=== PATIENT | male | born 1965 | race Caucasian/White ===

== ENCOUNTER 2024-10-15 11:14 | Emergency (ER) | payer SELFPAY ==
[2024-10-15 12:03] VITALS: BP 117/78; PULSE 95; RESP 16; TEMP 36.6; O2SAT 97; BMI 28.1
--- NOTE | 2024-10-15 12:52 | PD.EDANIML ---
ED Animal Bite RME/HPI General Chief Complaint: Animal Bite Stated Complaint: DOG BITE Time Seen by Provider: 10/15/24 12:03 Arrival date/time: 10/15/24 11:14 58-year-old male presents the emergency room today stating he was his 2 dogs and his dog accidentally bit him. Patient reports vaccines are up-to-date. Patient obtained 2 different lacerations on the right hand Limitations: no limitations Related Data Home Medications ?Medication ?Instructions ?Recorded ?Confirmed atenolol 25 mg tablet 25 mg PO QDAY 09/22/17 10/26/19 gabapentin 300 mg capsule 300 mg PO TID 09/22/17 10/26/19 lithium carbonate 300 mg tablet 300 mg PO DAILY PRN Sleep 09/22/17 10/26/19 quetiapine 400 mg tablet (Seroquel) 400 mg PO HS Anxiety 09/22/17 10/26/19 vortioxetine 5 mg tablet 5 mg PO QDAY 09/22/17 10/26/19 (Trintellix) Previous Rx's ?Medication ?Instructions ?Recorded amoxicillin 875 mg-potassium 1 tab PO BID 7 days #14 tabs 10/15/24 clavulanate 125 mg tablet ibuprofen 800 mg tablet 800 mg PO TID PRN pain #30 tabs 10/15/24 Allergies Allergy/AdvReac Type Severity Reaction Status Date / Time NKA* Allergy Uncoded 10/15/24 11:16 Review of Systems Review of Systems Systems Reviewed: All systems reviewed, normal except as documented Constitutional Constitutional: Reports system reviewed and no additional complaints, except as documented, Denies fever(s) and Denies headache(s) Eyes Eyes: Reports system reviewed and no additional complaints, except as documented and Denies blurry vision ENT Ears, Nose, Mouth, and Throat: Reports system reviewed and no additional complaints, except as documented, Denies headache(s), Denies nasal congestion and Denies nasal discharge Cardiovascular Cardiovascular: Reports system reviewed and no additional complaints, except as documented, Denies chest pain and Denies dyspnea Respiratory Respiratory: Reports system reviewed and no additional complaints, except as documented, Denies chest congestion, Denies cough and Denies dyspnea Gastrointestinal Gastrointestinal: Reports system reviewed and no additional complaints, except as documented and Denies abdominal pain Musculoskeletal Musculoskeletal: Reports system reviewed and no additional complaints, except as documented and Reports other (Laceration right hand 2nd and 3rd digit) Integumentary/Breasts Skin/Breast: Reports system reviewed and no additional complaints, except as documented, Denies rash and Reports wounds (Laceration right hand 2nd and 3rd digits) Neurologic Neurologic: Reports system reviewed and no additional complaints, except as documented, Reports as per HPI and Denies headache(s) Past Medical History Past Medical History NEUROLOGIC: Negative Neurological Disorders CARDIAC: Positive Hypertension; Negative Cardiac Disorders or Congestive Heart Failure RESPIRATORY: Negative Chronic Obstructive Pulmonary Disease (COPD) GENITOURINARY: Negative Renal Disease ENDOCRINE: Positive Diabetes Mellitus Type 2; Negative Diabetes Mellitus Type 1 PSYCHO/SOCIAL: Positive Depression Social History SMOKING STATUS: Never smoker ED Exam General Limitations: Present no limitations General appearance: Present alert and in no apparent distress Head Head exam: Present atraumatic Eye Eye exam: Present normal appearance, PERRL and EOMI ENT ENT exam: Present normal exam, normal oropharynx and mucous membranes moist Neck Neck exam: Present normal inspection, full ROM and trachea midline Chest Chest inspection: Present normal inspection and symmetric chest wall rise Respiratory Respiratory exam: Present normal lung sounds bilaterally Cardiovascular Cardiovascular exam: Present regular rate, normal rhythm and normal heart sounds Abdominal Exam Abdominal exam: Present soft and normal bowel sounds Extremities Exam Extremities exam: Present full ROM, tenderness, normal capillary refill and other (Laceration right hand 2nd and 3rd digits); Absent joint swelling Back Exam Back exam: Present normal inspection and full ROM Neurological Exam Neurological exam: Present alert, oriented X3 and CN II-XII intact Psychiatric Psychiatric exam: Present normal affect and normal mood Skin Skin exam: Present warm, dry and other (Laceration right hand 2nd and 3rd digits) Course Quality Measures none Orders Category Date Time Status Set Up Suture Tray STAT Care 10/15/24 12:09 Active Wound Care NOW Care 10/15/24 12:09 Active Amoxicillin/Pot Clav 875 [Augmentin 875] Med 10/15/24 12:09 Discontinued 1 tab PO X1 ONE Lidocaine 1% 20 ml [Xylocaine 1% 20 ML] Med 10/15/24 12:09 Discontinued 20 ml INFL X1 ONE Vital Signs Vital signs: Vital Signs Temperature 97.9 F 10/15/24 12:03 Pulse Rate 95 10/15/24 12:03 Respiratory Rate 16 10/15/24 12:03 Blood Pressure 117/78 10/15/24 12:03 Pulse Oximetry (%) 97 10/15/24 12:03 Oxygen Delivery Method Room Air 10/15/24 12:03 O2 saturation 97% on room air within normal limits Procedures -ED Laceration Laceration 1: Site: hand Side (If applicable): right Size (cm): 4 Description: irregular Depth: simple, single layer Local Anesthetic: lidocaine 1% Amount of anesthesia used (mL): 8 Pre-repair: wound explored Skin layer closed with: nylon Size (cm): 4-0 Number of sutures: 8 Technique: simple, interrupted Laceration 2: Site: hand Side (If applicable): right Size (cm): 3 Description: linear and irregular Depth: simple, single layer Local Anesthetic: lidocaine 1% Amount of anesthesia used (mL): 10 Pre-repair: wound explored Size (cm): 4-0 and 5-0 Number of sutures: 9 Animal Bite MDM Narrative MDM Narrative:: 58-year-old male presents the emergency room today stating he was his 2 dogs and his dog accidentally bit him. Patient reports vaccines are up-to-date. Patient obtained 2 different lacerations on the right hand On exam patient making a fist move all fingers without difficulty no evidence of tendon or ligamentous injury Multiple sutures applied which are well-approximated with no active bleeding, discharge Patient reports tetanus up-to-date patient given first dose of antibiotics here Patient discharged home in no distress to follow-up with primary care doctor in the next 24 to 48 hours and for any worsening symptoms to return to the ER immediately Patient data External records reviewed:: [facility] previous records Clinical information provided by:: patient Social determinants that could affect healthcare access:: none Patient has the following chronic illnesses:: None How is presenting disease/condition affected by chronic disease/condition?: no chronic disease Evaluation data The following diagnostics were reviewed and interpreted by me:: other (specify) Lab and/or radiology exams considered but not ordered:: Considered not ordered Interpretation Summary: N/A Medications / Prescriptions Medications or Prescriptions considered but not ordered:: Given Medication administrations:: Medication Administration History Discontinued Medications Amoxicillin/Clavulanate Potassium (Amoxicillin/Pot Clav 875 Tablet) 1 tab PO X1 ONE Stop: 10/15/24 12:10 Last Admin: 10/15/24 13:04 Dose: 1 tab Documented By: BASHIR Lidocaine HCl (Lidocaine Hcl 1% 20 Ml Vial) 20 ml INFL X1 ONE Stop: 10/15/24 12:10 Last Admin: 10/15/24 13:04 Dose: 20 ml Documented By: BASHIR Comments: given to lieutenant shift supervisor deppen for administration Given Consultations Consultation(s) initiated? (list below): No Diagnosis Differential diagnosis animal bite: bite by animal and dog bite Most likely diagnosis given after review of the tests above:: Dog bite Admission Indicated Admission indicated?: not indicated Admission Request Was there a request for admission?: No Disposition Plan Disposition Plan: Discharge Discharge Attestation Discharge Attestation: The patient and all family members were given an opportunity to ask questions and understood the discharge instructions. Discharge instructions specifically effects, indications for sooner follow up or return to the emergency department, and the expected course of current diagnosis. Patient condition: Stable Discharge Plan Plan Patient Disposition: HOME (Self Care) Discharge Disposition comment: Stable Prescriptions/Referrals Prescriptions/Med Rec: New ibuprofen 800 mg tablet 800 mg PO TID PRN (Reason: pain) Qty: 30 0RF amoxicillin-pot clavulanate 875-125 mg tablet 1 tab PO BID 7 Days Qty: 14 0RF No Action lithium carbonate 300 mg Tablet 300 mg PO DAILY PRN (Reason: Sleep) quetiapine [Seroquel] 400 mg Tablet 400 mg PO HS Trintellix 5 mg Tablet 5 mg PO QDAY atenolol 25 mg Tablet 25 mg PO QDAY gabapentin 300 mg Capsule 300 mg PO TID Problem List Clinical Impression: Dog bite of right hand Patient/Caregiver Discharge Instructions Education Materials: ED Dog Bite Additional Instructions: Please follow up with your primary care doctor in the next 24-48hrs for any worsening symptoms return here immediately Print Language: Indonesian Stand Alone Forms: Angely Award Info., Patient Portal Info Letter PA/ASSISTANT PROFESSOR OF MATHEMATICS Supervising Physician PA/ASSISTANT PROFESSOR OF MATHEMATICS Supervising Physician: Dr Heredia
[2024-10-15] MEDS: LIDOCAINE HCL 1% 20 ML VIAL INFL (13:04)
[2024-10-15] MEDS: AMOXICILLIN/POT CLAV 875 TABLET 1 TAB PO (13:04)
== END 2024-10-15 13:45 | disposition home or self-care (01) ==
LOC: SERX 14:21
PROVIDERS: Emergency Provider Family Medicine
DX: S61.451A Open bite of right hand, initial encounter (principal); W54.0XXA Bitten by dog, initial encounter
CPT/HCPCS: 12004; 99283; J3490; A9270